=== PATIENT | male | born 1945 | race Caucasian/White ===

== ENCOUNTER → 2023-04-17 07:46 | Outpatient (REF) | payer MEDICARE, OTHER, SELFPAY | LOC: DHCBC/DCA 07:46 | PROVIDERS: ATTENDING PHYSICIAN Internal Medicine Cardiovascular Disease; FAMILY PHYSICIAN Family Medicine | DX: I42.9 Cardiomyopathy, unspecified (principal); I48.0 Paroxysmal atrial fibrillation | CPT/HCPCS: 78452; 93017; A9500; J2785 ==

== ENCOUNTER 2023-05-15 08:22 | Outpatient (RCR) | payer MEDICARE, OTHER, SELFPAY | END 2023-05-15 23:59 | disposition home or self-care (01) | LOC: RPT 08:22 | PROVIDERS: ATTENDING PHYSICIAN Nurse Practitioner Adult Health; FAMILY PHYSICIAN Family Medicine | DX: I69.312 Visuospatial deficit and spatial neglect following cerebral infarction (principal); Z73.6 Limitation of activities due to disability | CPT/HCPCS: 97163; 97530; 97535 ==

== ENCOUNTER 2023-06-06 15:11 | Outpatient (RCR) | payer MEDICARE, OTHER, SELFPAY | END 2023-06-07 07:41 | disposition home or self-care (01) | LOC: RPT 15:11 | PROVIDERS: ATTENDING PHYSICIAN Nurse Practitioner Adult Health; FAMILY PHYSICIAN Family Medicine | DX: I69.312 Visuospatial deficit and spatial neglect following cerebral infarction (principal); Z73.6 Limitation of activities due to disability | CPT/HCPCS: 97530; 97535 ==

== ENCOUNTER → 2023-06-27 08:12 | Outpatient (REF) | payer MEDICARE, OTHER, SELFPAY | LOC: DHCBS HW 08:12 | PROVIDERS: ATTENDING PHYSICIAN Internal Medicine Cardiovascular Disease; FAMILY PHYSICIAN Family Medicine | DX: I42.9 Cardiomyopathy, unspecified (principal) | CPT/HCPCS: 93306 ==

== ENCOUNTER → 2023-08-13 12:29 | Outpatient (REF) | payer MEDICARE, OTHER, SELFPAY ==
[2023-08-13 14:12] LABS: % Basophils 0.5 % (0-2); % Immature Granulocytes 0.4 % (0-0.5); % Monocytes 7.3 % (1.7-9.3); % Neutrophils 69.8 % (42.2-75.2); Absolute Eosinophils 0.3 10^3/uL (0-0.7); Absolute Lymphocytes 1.6 10^3/uL (1.2-3.4); Absolute Monocytes 0.6 10^3/uL (0.1-0.6); Absolute Neutrophils 5.9 10^3/uL (1.4-6.5); Hematocrit 42.8 % (39.0-52.0); Mean Corpuscular Hgb 31.7 pg (27.0-31.0); Mean Corpuscular Volume 90.5 fL (80.0-94.0); Mean Platelet Volume 10.5 fL (7.4-10.4); Nucleated Red Blood Cells % 0 % (-); Platelet Count 184 10^3/uL (130-400); Red Blood Cell Count 4.73 10^6/uL (4.70-6.10); Red Cell Dist. Width 11.9 % (11.5-14.5); White Blood Cell Count 8.4 10^3/uL (4.8-10.8)
[2023-08-13 14:19] LABS: INR 1.19; PT 14.9 Sec (11.4-14.6)
[2023-08-13 14:27] LABS: ALT (SGPT) 42 U/L (0-50); AST (SGOT) 37 U/L (17-59); Albumin 4.2 g/dl (3.5-5.0); Alkaline Phosphatase 67 U/L (38-126); Blood Urea Nitrogen 24 mg/dl (9-20); Calcium 9.7 mg/dl (8.4-10.2); Carbon Dioxide 30 mmol/L (22-30); Chloride 102 mmol/L (98-107); Glucose 190 mg/dl (70-99); Magnesium 2.2 mg/dl (1.6-2.3); Potassium 4.3 mmol/L (3.5-5.1); Sodium 138 mmol/L (135-145); Total Bilirubin 1.7 mg/dl (0.2-1.3); Total Protein 7.1 g/dl (6.3-8.2); eGFR > 60.00
== END ==
LOC: SDSPAT 12:29
PROVIDERS: ATTENDING PHYSICIAN Internal Medicine Cardiovascular Disease; FAMILY PHYSICIAN Family Medicine; OTHER PHYSICIAN Internal Medicine Cardiovascular Disease
DX: Z01.818 Encounter for other preprocedural examination (principal); I48.0 Paroxysmal atrial fibrillation
CPT/HCPCS: 36415; 75572; 80053; 83735; 85025; 85610; 86850; 86900; 86901; 93005; Q9967

== ENCOUNTER 2023-08-23 06:01 | Day surgery (SDC) | payer MEDICARE, OTHER, SELFPAY ==
[2023-08-23] VITALS (11 sets, daily range): BP systolic 119–156; BP diastolic 68–85; BMI 28.9
[2023-08-23 06:41] LABS: Glucose - Point of Care 143 mg/dl (70-99)
--- NOTE | 2023-08-23 07:15 | ITS.CL.ABL ---
[employer] - Ablation
Ablation
Procedure Report:
Primary Ribbon Weaver: Barry Nuñez MD
PCP: Oscar Peres MD
Procedure Date: 08/23/2023
Patient History:
Patient is a pleasant 78-year-old male with a past medical history significant for hyperlipidemia, elevated PSA, hypertension, CVA 01/2023, heart failure with mildly reduced ejection fraction, and symptomatic paroxysmal atrial fibrillation.
See H&P for complete details.
Indication:
Symptomatic paroxysmal AF
Heart Failure with reduced LVEF
Arrhythmia Specific History:
Prior Medical Therapies for Rate and Rhythm Control:
X Beta-siri
X Calcium channel-siri
[ ] Amiodarone
[ ] Dronederone
[ ] Sotalol
[ ] Flecainide
[ ] Dofetilide
X Options limited by bradycardia
[ ] Options limited by comorbid renal disease
Prior Procedural Therapies for AF/AFL:
[ ] Cardioversion
[ ] Pulmonary Vein Isolation
[ ] Posterior Wall Isolation
[ ] Additional lines (Specify)
[ ] Surgical [place]-MAZE or PVI (Specify)
Procedure Performed:
X AF ablation procedure (01749) -- includes LA/CS pacing, trans-septal, 3D mapping, + ICE
[ ] +IV drug (35093)
[ ] +Other Arrhythmia (52842)
[ ] +Other AF Line/ablation (42877)
Risks and expected recovery has been explained in detail. Alternative options have been explored, and in a shared-decision making fashion we have decided that this was the most appropriate procedure.
Method
NPO status confirmed. Grounding pad applied. Defibrillator pads applied. Continuous surface ECG, pulse oximetry, and blood pressure were monitored. Procedure was performed under general anesthesia, with anesthesia services.
Both groins were clipped, prepped with Chloraprep, and draped in sterile fashion. Time out was called. Local anesthesia administered with bupivacaine. The right and left femoral veins were accessed for catheter placement, using ultrasound guidance,
micro-puncture needle/wire, and modified seldinger technique. 3 sheaths were placed. The following catheters were used:
[ ] Tacticath SE (D/F Curve) ablation catheter
X Viewflex 9Fr ICE catheter
X Inquiry decapolar 6Fr diagnostic catheter
[ ] CRD Hex 6Fr
[ ] Arctic Front Advance Cryoballoon ([ ]28mm[ ]23mm)
[ ] Achieve Advance mapping catheter ([ ]15mm[ ]20mm)
X FlexCath Contour 10 Fr with PulseSelect PFA Catheter
X Advisor HD Grid Mapping Catheter, SE
[ ] AcusSpectraSensors AcuNav 8 Fr ICE catheter
[ ]Other: [ ]
Intracardiac ultrasound (ICE) was carefully advanced into the right atrium to guide sheath placement over a J-wire, catheter placement, guide trans-septal puncture, identify potential complications, identify anatomic structures and ensure proper
contact between ablation catheter and tissue.
Heparin was given prior to trans-septal puncture. Heparin was given to achieve and maintain a target ACT of 300-400 seconds throughout the procedure.
Trans-septal access was performed under ICE guidance. The trans-septal puncture was performed with a SafeSept wire through a Brockenbrough needle assembly through the steerable sheath. The wire was visualized as it entered the LSPV and system
advanced under ICE guidance and fluoroscopy into the LA. The Brockenbrough needle assembly, SafeSept wire and sheath dilator were removed under negative pressure. LA pressure was measured and recorded.
ICE and 3D mapping was performed to identify relevant cardiac structures. A careful 3D map was created to assess for regions of low-voltage and abnormal electrogram signals using HD grid mapping catheter and PulseSelect catheter. Additional mapping
was performed as outlined below.
Prior to ablation, glycopyrrolate was provided. PulseSelect catheter was advanced over J-wire to the ostium of each vein. Pulmonary vein isolation was performed with ostial and antral lesions in a circumferential manner. Contact was visualized via
EAM, ICE, fluoroscopy, and EGM signals. Following completion of ablation lesions, a post-ablation voltage/activation map was performed in sinus rhythm. Entrance and exit block were confirmed for each vein.
Catheter and sheath were removed from the left atrium and post-ablation intracardiac echo evaluation was consistent with pre-ablation with no changes and no pericardial effusion and there is no left atrial thrombus or left ventricle thrombus seen.
Electrophysiology study was performed. Hemostasis was obtained with figure of 8 stitch for each groin and with manual pressure. Protamine was used for reversal.
Estimated Blood Loss
5-10 mL
Complications
None
Fluoroscopy: 6.1 minutes; 35.07 mGy
Baseline Intervals:
Rhythm: SR
HI: 148 ms
QRS: 97 ms
QT: 455 ms
QTc: 388 ms
A-A: 1408 ms
R-R: 1408 ms
Post-Procedure Intervals:
HI: 148 ms
QRS: 95 ms
QT: 425 ms
QTc: 399 ms
A-A: 1134 ms
R-R: 1134 ms
AVWB: 340 ms
AERP: 600/240 ms
Recommendations
- Bedrest with straight-leg precautions as ordered
- Anticipate same day discharge if patient meeting clinical metrics
- Resume home medications as indicated
- Ok to resume anticoagulation tonight if patient and groin sites stable
- PPI daily for 30 days
- Plan for follow-up in office in 4-6 weeks
Han Metzger DO
Clinical [employer] Sales Representative
cc: Barry Nuñez MD; Oscar Peres MD
[2023-08-23 08:41] LABS: ACT-LR - POC 295 Seconds (116-155)
[2023-08-23 08:59] LABS: ACT-LR - POC 360 Seconds (116-155)
[2023-08-23 09:26] LABS: ACT-LR - POC 368 Seconds (116-155)
[2023-08-23 09:52] LABS: ACT-LR - POC 369 Seconds (116-155)
[2023-08-23 09:59] LABS: ACT-LR - POC 139 Seconds (116-155)
[2023-08-23 11:20] LABS: Glucose - Point of Care 157 mg/dl (70-99)
[2023-08-23] MEDS: ZESTRIL 5 MG PO (13:05)
[2023-08-23] MEDS: PROSCAR 5 MG PO (13:05)
[2023-08-23] MEDS: LIPITOR 80 MG PO (13:05)
--- NOTE | 2023-08-23 15:18 | W.PN.UPDATE ---
Update Note
Progress Note Update
78 yo WM s/p PVI (same day) He feels good, no cp, sob, jane diet, voiding, amb w/o dizziness, EKG SR, b/l groins c/d/i no HT, soft. He will continue OAC Eliquis tonight at 4pm at home. He will take PPI for 30 days. Activity restrictions reviewed. He
will f/u Dr. Lopez in 3 mo. He is for d/c home after 3pm.
Patient is a pleasant 78-year-old male with a past medical history significant for hyperlipidemia, elevated PSA, hypertension, CVA 01/2023, heart failure with mildly reduced ejection fraction, and symptomatic paroxysmal atrial fibrillation.
See H&P for complete details.
Indication:
Symptomatic paroxysmal AF
Heart Failure with reduced LVEF
Procedure Performed:
X AF ablation procedure (60380) -- includes LA/CS pacing, trans-septal, 3D mapping, + ICE
[ ] +IV drug (63904)
[ ] +Other Arrhythmia (04454)
[ ] +Other AF Line/ablation (29944)
== END 2023-08-23 15:10 | disposition home or self-care (01) ==
LOC: CATH 06:01
PROVIDERS: ATTENDING PHYSICIAN Internal Medicine Cardiovascular Disease; FAMILY PHYSICIAN Family Medicine; OTHER PHYSICIAN Internal Medicine Cardiovascular Disease
DX: I48.0 Paroxysmal atrial fibrillation (principal); Z86.73 Personal history of transient ischemic attack (TIA), and cerebral infarction without residual deficits; I11.0 Hypertensive heart disease with heart failure; I50.22 Chronic systolic (congestive) heart failure; I42.9 Cardiomyopathy, unspecified; I34.0 Nonrheumatic mitral (valve) insufficiency; E78.5 Hyperlipidemia, unspecified; E11.59 Type 2 diabetes mellitus with other circulatory complications; Z79.01 Long term (current) use of anticoagulants
CPT/HCPCS: C1732; C1894; C1733; C1769; C1759; 76937; 82962; 85347; 86900; 86901; 93005; 93656

== ENCOUNTER 2024-04-01 06:16 | Day surgery (SDC) | payer MEDICARE, OTHER, SELFPAY ==
[2024-04-01 11:09] LABS: Glucose - Point of Care 123 mg/dl (70-99)
== END 2024-04-01 12:43 | disposition home or self-care (01) ==
LOC: GI 06:16
PROVIDERS: ATTENDING PHYSICIAN Surgery
DX: Z12.11 Encounter for screening for malignant neoplasm of colon (principal); R19.4 Change in bowel habit; K64.9 Unspecified hemorrhoids; K63.5 Polyp of colon; Z86.0100 Personal history of colon polyps, unspecified
CPT/HCPCS: 45380; 88305; 82962

== ENCOUNTER → 2024-05-20 08:18 | Outpatient (REF) | payer MEDICARE, OTHER, SELFPAY | LOC: HWRCS 08:18 | PROVIDERS: ATTENDING PHYSICIAN Internal Medicine Cardiovascular Disease; FAMILY PHYSICIAN Family Medicine | DX: I42.9 Cardiomyopathy, unspecified (principal) | CPT/HCPCS: 93306 ==